=== PATIENT | male | born 1995 | race Caucasian/White ===

== ENCOUNTER 2016-12-29 13:20 | Emergency (ER) | payer BC, OTHER ==
[~2016-12-29] VITALS: Ht 165.1 cm; Wt 72.2 kg
[2016-12-29 13:22] VITALS: BP 130/79
[2016-12-29] MEDS ORDERED: KETOROLAC 30 MG/1 ML ONE (13:52)
[2016-12-29] MEDS ORDERED: KETOROLAC 30 MG/1 ML IM ONE (14:00)
== END 2016-12-29 14:51 | disposition home or self-care (01) ==
LOC: ED 13:51
DX: S62.366A Nondisplaced fracture of neck of fifth metacarpal bone, right hand, initial encounter for closed fracture (principal); W19.XXXA Unspecified fall, initial encounter; Y93.89 Activity, other specified; Y92.89 Other specified places as the place of occurrence of the external cause; Y99.9 Unspecified external cause status
CPT/HCPCS: 73130; 96372; 99284; J1885